=== PATIENT | female | born 2000 | race Caucasian/White ===

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

== ENCOUNTER → 2021-08-09 | Outpatient (CLI) | payer OTHER | LOC: IHS 13:33 | PROVIDERS: ATTEND Emergency Medicine | DX: Z11.1 Encounter for screening for respiratory tuberculosis (principal) | CPT/HCPCS: 86480 ==

== ENCOUNTER 2022-02-03 14:05 | Emergency (ER) | payer OTHER ==
[2022-02-03 15:00] VITALS: BP 130/80; PULSE 77; RESP 18; TEMP 98.7
[2022-02-03 15:37] LABS: Bacteria,Urine Few /hpf; Mucus,Urine Few /hpf; RBC,Urine >182 /hpf (0-5); Squamous Epithelial Cell,Urine 25 /hpf (0-4); WBC,Urine 41 /hpf (0-5)
[2022-02-03 15:38] LABS: Color,Urine Red
[2022-02-03 15:41] LABS: Appearance,Urine Bloody (Clear)
--- NOTE | 2022-02-03 17:01 | ED ---
Female Urogenital HPI - General Chief complaint: Vaginal Bleeding Stated complaint: Possible Miscarrage Time Seen by Provider: 02/03/22 17:00 Source: patient, RN notes reviewed, old records reviewed Mode of arrival: ambulatory Limitations: no limitations - History of Present Illness Initial comments: This is a well-appearing 21-year-old female seen in the waiting room with complaints of vaginal bleeding and cramping. Patient states she was 4 days late and thinks she is and is concerned for miscarriage. Patient denies any medical history. Denies cigarette smoking but does vape. MD Complaint: vaginal bleeding -: days(s) (1) Radiation: non-radiating Severity scale (1-10): 7 Quality: cramping Consistency: constant Improves with: none Patient : No Associated Symptoms: denies other symptoms - Related Data Sexually active: Yes Previous Rx's Medication Instructions Recorded Sulfamethox-Tmp 800-160Mg [Bactrim 1 each PO Q12HR 5 Days #10 tab 12/01/20 Ds] Cephalexin [Keflex] 500 mg PO BID 7 Days #14 cap 02/03/22 Allergies Allergy/AdvReac Type Severity Reaction Status Date / Time No Known Allergies Allergy Verified 02/03/22 15:00 Review of Systems ROS Statement: Those systems with pertinent positive or pertinent negative responses have been documented in the HPI. ROS Other: All systems not noted in ROS Statement are negative. Past Medical History Past Medical History: No Reported History History of Any Multi-Drug Resistant Organisms: None Reported Past Surgical History: No Surgical Hx Reported Past Psychological History: No Psychological Hx Reported Smoking Status: Vaper Past Alcohol Use History: None Reported Past Drug Use History: Marijuana General Exam Limitations: no limitations General appearance: alert, in no apparent distress Head exam: Present: atraumatic Eye exam: Absent: scleral icterus, conjunctival injection, periorbital swelling ENT exam: Present: normal oropharynx, mucous membranes moist Neck exam: Present: full ROM. Absent: meningismus Respiratory exam: Present: normal lung sounds bilaterally. Absent: respiratory distress, wheezes, rales, rhonchi, stridor, chest wall tenderness, accessory muscle use Cardiovascular Exam: Present: regular rate GI/Abdominal exam: Present: soft. Absent: distended, rigid Extremities exam: Present: normal capillary refill Back exam: Present: full ROM. Absent: CVA tenderness (R), CVA tenderness (L) Neurological exam: Present: alert, oriented X3, normal gait Psychiatric exam: Present: normal affect, normal mood Skin exam: Present: warm, dry, normal color. Absent: cyanosis, diaphoretic Course Vital Signs 02/03/22 14:57 Temperature 98.7 F Pulse Rate 77 Respiratory 18 Rate Blood Pressure 130/80 O2 Sat by Pulse 100 Oximetry Medical Decision Making - Medical Decision Making Patient presents with concern for possible miscarriage. She states that she developed vaginal bleeding today after being 4 days late for her menses. Patient denies any pain with palpation of RLQ or suprapubic. Denies any dysuria. No concern for sexually transmitted infection. Urine test is negative. She does have evidence of UTI with bacteria. She will be placed on Keflex. Her pain is likely menses related. She was directed to take Tylenol and/or Motrin as needed for any pain or discomfort along with warm packs for pain relief or discomfort. Encouraged her to follow up with her primary care doctor next week for reevaluation. She is agreeable to this plan of care. Case discussed with Dr. Keys - Lab Data Lab Results 02/03/22 02/03/22 Range/Units 15:08 15:08 Urine Color Red Urine Appearance Bloody H (Clear) Urine RBC >182 H (0-5) /hpf Urine WBC 41 H (0-5) /hpf Ur Squamous Epith Cells 25 H (0-4) /hpf Urine Bacteria Few H (None) /hpf Urine Mucus Few H (None) /hpf Urine HCG, Qual Not Detected (Not Detectd) Disposition Clinical Impression: UTI (urinary tract infection) Disposition: HOME SELF-CARE Condition: Good Instructions (If sedation given, give patient instructions): Urinary Tract Infection in Women (ED) Additional Instructions: Increase your fluid intake. Take antibiotics as prescribed. Follow-up primary care doctor next week. Return to emergency room with any new concerning symptoms. Prescriptions: Cephalexin [Keflex] 500 mg PO BID 7 Days #14 cap Is patient prescribed a controlled substance at d/c from ED?: No Referrals: None,Stated [Primary Care Provider] - 1-2 days Time of Disposition: 17:07
== END 2022-02-03 17:23 | disposition home or self-care (01) ==
LOC: EC 14:05
DX: N39.0 Urinary tract infection, site not specified (principal); F17.290 Nicotine dependence, other tobacco product, uncomplicated
CPT/HCPCS: 81001; 81025; 87086; 99283

== ENCOUNTER → 2022-09-19 | Outpatient (CLI) | payer OTHER | END | disposition home or self-care (01) | LOC: LABWHC1 10:59 | PROVIDERS: ATTEND Obstetrics & Gynecology | DX: N94.89 Other specified conditions associated with female genital organs and menstrual cycle (principal); N93.8 Other specified abnormal uterine and vaginal bleeding | CPT/HCPCS: 36415; 84702 ==

== ENCOUNTER 2024-03-10 16:30 | Inpatient (IN) | payer OTHER ==
[2024-03-19] MEDS ORDERED: OXYTOCIN 10 UNIT/ML 1 ML VIAL IM PRN (06:26)
[2024-03-19] MEDS ORDERED: miSOPROStoL 200 MCG TAB PO PRN (06:26)
[2024-03-19] MEDS ORDERED: miSOPROStoL 200 MCG TAB RECTAL PRN (06:26)
[2024-03-19] MEDS ORDERED: CARBOPROST TROMETHAMINE 250 MCG/ML 1 ML AMP IM PRN (06:26)
[2024-03-19] MEDS ORDERED: TERBUTALINE 1 MG/ML VIAL SQ PRN (06:26)
[2024-03-19] MEDS ORDERED: TRANEXAMIC 1,000 MG/100ML-NACL 1,000 MG in EMPTY BAG 1 BAG IV PRN (06:26)
[2024-03-19] MEDS: OXYTOCIN 30 UNITS/500 ML NS 30 UNIT in SALINE 1 500ML.BAG IV SCH (07:17)
[2024-03-19] MEDS: LACTATED RINGERS 1,000 ML IV SCH (07:17)
[2024-03-19 07:28] LABS: Basophils % (A) 0 %; Eosinophils # (A) 0.1 k/uL (0-0.7); Eosinophils % (A) 2 %; HCT 36.6 % (34.0-46.0); HGB 12.3 gm/dL (11.4-16.0); Lymphocytes # (A) 1.7 k/uL (1.0-4.8); Lymphocytes % (A) 21 %; MCH 29.7 pg (25.0-35.0); MCHC 33.6 g/dL (31.0-37.0); MCV 88.4 fL (80.0-100.0); Mean Platelet Volume 7.9; Monocytes # (A) 0.4 k/uL (0-1.0); Monocytes % (A) 5 %; Neutrophils # (A) 5.7 k/uL (1.3-7.7); Neutrophils % (A) 70 %; Platelet Count 213 k/uL (150-450); RBC 4.15 m/uL (3.80-5.40); RDW 14.3 % (11.5-15.5); WBC 8.2 k/uL (3.8-10.6)
--- NOTE | 2024-03-19 07:48 | P.HPOB ---
History of Present Illness H&P Date: 03/19/24 Chief Complaint: induction of labor 23 year old presents at 41 weeks 1 day for induction of labor. She presented and will her cervix was closed thick and high. 5 Dilapan sticks were placed in the normal sterile fashion. This morning her cervix is 3 cm dilated, 60% and -2 station after removal of the Dilapan. Review of Systems All systems: negative Constitutional: Denies chills, Denies fever Eyes: denies blurred vision, denies pain Ears, nose, mouth and throat: Denies headache, Denies sore throat Cardiovascular: Denies chest pain, Denies shortness of breath Respiratory: Denies cough Gastrointestinal: Denies abdominal pain, Denies diarrhea, Denies nausea, Denies vomiting Genitourinary: Denies dysuria, Denies hematuria Musculoskeletal: Denies myalgias Integumentary: Denies pruritus, Denies rash Neurological: Denies numbness, Denies weakness Psychiatric: Denies anxiety, Denies depression Endocrine: Denies fatigue, Denies weight change Past Medical History Past Medical History: Asthma History of Any Multi-Drug Resistant Organisms: None Reported Past Surgical History: No Surgical Hx Reported Past Anesthesia/Blood Transfusion Reactions: No Reported Reaction Past Psychological History: No Psychological Hx Reported Smoking Status: Never smoker Past Alcohol Use History: None Reported Past Drug Use History: Marijuana Medications and Allergies Home Medications Medication Instructions Recorded Confirmed Type Vit No.179/Iron/Folic 1 tab PO Q1D 03/19/24 03/19/24 History [ Tablet] Allergies Allergy/AdvReac Type Severity Reaction Status Date / Time No Known Allergies Allergy Verified 03/18/24 17:33 Exam Osteopathic Statement: *. No significant issues noted on an osteopathic structural exam other than those noted in the History and Physical/Consult. Vital Signs Temp Pulse Resp BP Pulse Ox 03/19/24 06:24 97.3 F L 98 18 118/75 98 Intake and Output 03/18/24 03/19/24 03/19/24 22:59 06:59 14:59 Other: Weight 105.687 kg Heart: Regular rate and rhythm Lungs: Clear to auscultation bilaterally Abdomen: Soft, nontender Extremities: Negative Homans sign Results Result Diagrams: 03/19/24 07:18 Assessment and Plan (1) Encounter for induction of labor Current Visit: Yes Status: Acute Code(s): Z34.90 - ENCNTR FOR SUPRVSN OF NORMAL , UNSP, UNSP TRIMESTER SNOMED Code(s): 250880633 (2) Post-dates Current Visit: Yes Status: Acute Code(s): O48.0 - POST-TERM SNOMED Code(s): 54325769 Plan: 1. induction of labor with amniotomy and pitocin 2. anticipate normal vaginal delivery
[2024-03-19] MEDS ORDERED: ROPIVACAINE 5 MG/ML 30 ML VIAL ONE (11:19)
[2024-03-19] MEDS ORDERED: fentaNYL (PF) 50 MCG/ML 5 ML AMP ONE (11:19)
[2024-03-19] MEDS ORDERED: SODIUM CHLORIDE 0.9% 250 ML BAG ONE (11:19)
[2024-03-19] MEDS: ACETAMINOPHEN IV (For NPO) 1,000 MG in EMPTY BAG 1 BAG IVPB ONE (21:00)
[2024-03-19] MEDS: AMPICILLIN 2,000 MG in SODIUM CHLORIDE 0.9% 100 ML IVPB STA (21:00)
[2024-03-20] MEDS: AMPICILLIN 1,000 MG in SODIUM CHLORIDE 0.9% 50 ML IVPB SCH (00:54)
[2024-03-20] MEDS ORDERED: BENZOCAINE/MENTHOL SPRAY 1 GM/SPRAY AEROSOL TOPICAL PRN (02:14)
[2024-03-20] MEDS ORDERED: LANOLIN CREAM 1 GM TUBE TOPICAL PRN (02:14)
[2024-03-20] MEDS ORDERED: HYDROCORTISONE 2.5% RECTAL CREAM 30 GM TUBE RECTAL PRN (02:14)
[2024-03-20] MEDS ORDERED: diphenhydrAMINE 50 MG CAP PO PRN (02:14)
[2024-03-20] MEDS ORDERED: diphenhydrAMINE 25 MG CAP PO PRN (02:14)
[2024-03-20] MEDS ORDERED: SIMETHICONE 80 MG CHEWABLE PO PRN (02:14)
[2024-03-20] MEDS: METHYLERGONOVINE 0.2 MG/ML 1 ML AMP IM PRN (02:30)
[2024-03-20] MEDS: IBUPROFEN 800 MG TAB PO PRN (02:38)
[2024-03-20] MEDS: LIDOCAINE 0.5% (PF) 5 MG/ML (50 ML SDV) SQ PRN (02:39)
--- NOTE | 2024-03-20 07:43 | P.PROBDLV ---
Vaginal Delivery Note - . Vaginal Delivery Note: 23 year old presents at 41 weeks 1 day for induction of labor. She presented and will her cervix was closed thick and high. 5 Dilapan sticks were placed in the normal sterile fashion. In the morning her cervix is 3 cm dilated, 60% and -2 station after removal of the Dilapan. Then 30 a.m. amniotomy was performed and clear fluid noted. Pitocin was also started. She progressed slowly throughout the day and at 12-13 hours ruptured she did have a fever up to 100.7. I gave her a dose of a firm area which should bring the fever down and started antibiotics. She had an epidural and was comfortable. Her cervix was completely dilated at 1:30 AM. She pushed, there a viable male at 2:01 AM on 03/20/2024. Head delivered OA, a tight nuchal cord was doubly clamped at the perineum and cut. The 's shoulders were transverse incision of anterior and posterior, so the baby's left shoulder was delivered first by right and rest of body. At first the baby was starting to cry and be vigorous, I suctioned mucus and fluid out of the baby's mouth and nose, secondary apnea occurred and the baby went limp and my arms. Nursing help was called to the room. Apgars 4 At 1 minute, 7 At 5 minutes, 9 At 10 minutes, weight 8 pounds 12.7 ounces. Placenta delivered spontaneously, intact with three-vessel cord at 2:05 AM. Vagina, cervix, perineum inspected. First-degree midline laceration was repaired with 3-0 Vicryl. Estimated blood loss 150 mL. Mother and baby in stable condition.
[2024-03-20] MEDS: SENNOSIDES-DOCUSATE SODIUM 1 EACH TAB PO SCH (07:45)
[2024-03-20] MEDS: ACETAMINOPHEN TAB 500 MG TAB PO PRN (07:46)
[2024-03-20 16:42] VITALS: RESP 16
[2024-03-21 04:57] LABS: Basophils % (A) 0 %; Eosinophils # (A) 0.3 k/uL (0-0.7); Eosinophils % (A) 2 %; HCT 33.4 % (34.0-46.0); Lymphocytes # (A) 2.5 k/uL (1.0-4.8); Lymphocytes % (A) 21 %; MCH 29.4 pg (25.0-35.0); MCHC 32.9 g/dL (31.0-37.0); MCV 89.2 fL (80.0-100.0); Mean Platelet Volume 7.9; Monocytes # (A) 0.6 k/uL (0-1.0); Monocytes % (A) 5 %; Neutrophils # (A) 8.5 k/uL (1.3-7.7); Neutrophils % (A) 70 %; Platelet Count 191 k/uL (150-450); RBC 3.74 m/uL (3.80-5.40); RDW 14.4 % (11.5-15.5); WBC 12.1 k/uL (3.8-10.6)
[2024-03-21 08:10] VITALS: BP 124/84; PULSE 74; TEMP 98.4
--- NOTE | 2024-03-21 08:22 | P.DS ---
Providers Date of admission: 03/19/24 06:08 Expected date of discharge: 03/21/24 Attending physician: Mari Bueno Primary care physician: Stated None - Discharge Diagnosis(es) (1) Encounter for induction of labor Current Visit: Yes Status: Resolved (2) Post-dates Current Visit: Yes Status: Resolved (3) Status post normal vaginal delivery Current Visit: Yes Status: Acute Hospital Course: 4 and placement on 03/18/2024. She returned on 03/19/24 delivery in the morning of 03/20/2024. Her post course has been uneventful. She denies nausea, vomiting, chest pain, shortness of breath or calf pain. Her lochia is decreasing. She is ambulating and voiding without difficulty. Patient will be like to be discharged home day #1 in stable condition to follow-up with me in 6 weeks. Plan - Discharge Summary New Discharge Prescriptions: New Ibuprofen [Motrin] 600 mg PO Q6HR PRN #30 tab PRN Reason: Mild Pain Or Fever >= 100.5 No Action Vit No.179/Iron/Folic [ Tablet] 1 tab PO Q1D Discharge Medication List Vit No.179/Iron/Folic [ Tablet] 1 tab PO Q1D 03/19/24 [History] Ibuprofen [Motrin] 600 mg PO Q6HR PRN #30 tab 03/21/24 [Rx] Follow up Appointment(s)/Referral(s): Mari Bueno DO [Doctor of Osteopathic Medicine] - 04/21/24 1:45 pm Discharge Disposition: HOME SELF-CARE
== END 2024-03-21 14:00 | disposition home or self-care (01) | DRG 560 ==
LOC: 4FBP 03-19 06:08
PROVIDERS: ADMIT Obstetrics & Gynecology; ATTEND Obstetrics & Gynecology
PROC: 10E0XZZ Delivery of Products of Conception, External Approach (ICD-10-PCS; principal; 2024-03-20)
PROC: 0HQ9XZZ Repair Perineum Skin, External Approach (ICD-10-PCS; 2024-03-20)
PROC: 10907ZC Drainage of Amniotic Fluid, Therapeutic from Products of Conception, Via Natural or Artificial Opening (ICD-10-PCS; 2024-03-20)
PROC: 3E033VJ Introduction of Other Hormone into Peripheral Vein, Percutaneous Approach (ICD-10-PCS; 2024-03-20)
DX: O69.1XX0 Labor and delivery complicated by cord around neck, with compression, not applicable or unspecified (principal); J45.909 Unspecified asthma, uncomplicated; O48.0 Post-term pregnancy; O70.0 First degree perineal laceration during delivery; O99.52 Diseases of the respiratory system complicating childbirth; Z37.0 Single live birth; Z3A.41 41 weeks gestation of pregnancy
CPT/HCPCS: 85025; 86850; 86900; 86901

== ENCOUNTER → 2024-04-25 | Outpatient (CLI) | payer OTHER ==
[2024-04-25 17:11] LABS: Appearance,Urine Cloudy (Clear); Bacteria,Urine Rare /hpf; Bilirubin,Urine Negative (Negative); Blood,Urine Trace (Negative); Color,Urine Light Yellow; Glucose,Urine (UA) Negative (Negative); Ketones,Urine Negative (Negative); Leukocyte Esterase,Urine Large (Negative); Mucus,Urine Rare /hpf; Nitrite,Urine Negative (Negative); PH, Urine 6.5 (5.0-8.0); Protein,Urine Trace (Negative); RBC,Urine 4 /hpf (0-5); Squamous Epithelial Cell,Urine 23 /hpf (0-4); Urobilinogen,Urine <2.0 mg/dL (<2.0); WBC,Urine 130 /hpf (0-5)
== END | disposition home or self-care (01) ==
LOC: LABWHC1 16:04
PROVIDERS: ATTEND Obstetrics & Gynecology
DX: N39.0 Urinary tract infection, site not specified (principal)
CPT/HCPCS: 81001; 87086